=== PATIENT | female | born 1995 | race Caucasian/White ===

== ENCOUNTER → 2021-07-04 03:57 | Outpatient (CLI) | payer OTHER, SELFPAY ==
[2021-07-04 20:05] LABS: SARS-CoV-2 RNA PCR Negative
== END ==
PROVIDERS: PCP Family Medicine; Visit Provider Family Medicine
DX: Z20.822 Contact with and (suspected) exposure to COVID-19 (principal)
CPT/HCPCS: C9803; U0003; U0005

== ENCOUNTER → 2021-08-30 07:35 | Outpatient (CLI) | payer MEDICAID, SELFPAY ==
[2021-08-30 19:36] LABS: SARS-CoV-2 RNA PCR Negative
== END ==
PROVIDERS: PCP Family Medicine; Visit Provider Physician Assistant
DX: R68.89 Other general symptoms and signs (principal); Z20.822 Contact with and (suspected) exposure to COVID-19
CPT/HCPCS: C9803; U0003; U0005

== ENCOUNTER 2024-06-16 10:54 | Emergency (ER) | payer BC, SELFPAY ==
[2024-06-16 10:56] VITALS: BP 144/98; PULSE 73; RESP 15; TEMP 36.4; O2SAT 100
[2024-06-16 11:09] VITALS: BP 139/91; PULSE 63; RESP 17; TEMP 36.3; O2SAT 100
[2024-06-16 11:29] LABS: BEDSIDEPREGUCG Negative (Negative)
--- NOTE | 2024-06-16 12:19 | ED.GENADULT ---
HPI - General Adult General Chief complaint: Headache Stated complaint: migraine Time Seen by Provider: 06/16/24 11:27 History of Present Illness HPI narrative: 28-year-old female presents to the emergency department for evaluation for worsening headache. Patient does have a history of migraines and did stop taking her amitriptyline back in November. Patient states since then she has not had frequent migraines but states over the last 2 weeks she has had recurrent migraines at nighttime. Patient did present to the [facility] your urgent care today and was referred to the emergency department. Related Data Allergies Allergy/AdvReac Type Severity Reaction Status Date / Time No Known Drug Allergies Allergy Unknown Verified 06/16/24 12:28 Review of Systems Review of Systems: All systems reviewed & are unremarkable except as noted in HPI and below Exam Narrative: APPEARANCE: Well appearing, no pain, no distress, well-nourished. HEAD: normocephalic, atraumatic. EYES: PERRLA/EOMI, conjunctivae clear. NOSE: Normal no drainage NECK: Supple. No adenopathy, no masses. RESPIRATORY: Airway patent, respirations nonlabored. Clear to auscultation bilaterally, no rales, rhonchi, wheezing. CARDIOVASCULAR: Regular rate and rhythm without murmurs rubs or gallops. ABDOMINAL: Soft, nontender, nondistended, normal bowel sounds MUSCULOSKELETAL: Moves all extremities. Strength/ROM intact, No edema, No calf tenderness. NEURO: Alert. Cranial nerves II through XII intact. Grossly intact SKIN: Warm, dry. Normal Color Course Vital Signs Vital signs: Vital Signs Temperature 97.5 F L 06/16/24 10:56 Pulse Rate 73 06/16/24 10:56 Respiratory Rate 15 06/16/24 10:56 Blood Pressure 144/98 H 06/16/24 10:56 Pulse Oximetry 100 06/16/24 10:56 Oxygen Delivery Room Air 06/16/24 10:56 Temperature 97.6 F 06/16/24 14:23 Pulse Rate 66 06/16/24 14:23 Respiratory Rate 14 06/16/24 14:23 Blood Pressure 129/96 H 06/16/24 14:23 Pulse Oximetry 100 06/16/24 14:23 Oxygen Delivery Room Air 06/16/24 10:56 Medical Decision Making [facility] Narrative Medical decision making narrative: 28-year-old female presenting to the emergency department for evaluation for her migraine pain. Patient was treated with IV Toradol, IV Benadryl, IV Compazine and IV fluids. Patient had a normal neuro exam, low concern for intracranial abnormality knee. Patient did feel significantly improved on re-evaluation. Patient states her headache was completely resolved. Patient was encouraged to have close follow-up with her primary care physician and to seek referral to to a headache clinic. All questions concerns were addressed. Differential Diagnosis Differential Diagnosis: Headache, migraine, sinusitis Vital Signs Vital Signs: Vital Signs Temperature 97.5 F L 06/16/24 10:56 Pulse Rate 73 06/16/24 10:56 Respiratory Rate 15 06/16/24 10:56 Blood Pressure 144/98 H 06/16/24 10:56 Pulse Oximetry 100 06/16/24 10:56 Oxygen Delivery Room Air 06/16/24 10:56 Temperature 97.6 F 06/16/24 14:23 Pulse Rate 66 06/16/24 14:23 Respiratory Rate 14 06/16/24 14:23 Blood Pressure 129/96 H 06/16/24 14:23 Pulse Oximetry 100 06/16/24 14:23 Oxygen Delivery Room Air 06/16/24 10:56 Lab Data 06/16/24 12:26 06/16/24 12:25 Labs: Lab Results 06/16/24 06/16/24 06/16/24 Range/Units 11:26 12:25 12:26 WBC 9.5 (4.5-10.0) K/mm3 RBC 5.24 (4.2-5.4) M/mm3 Hgb 15.0 (12.0-15.0) g/dL Hct 45.4 (37.0-47.0) % MCV 86.6 (80-100) fl MCH 28.6 (26-34) pg MCHC 33.0 (32-36) g/dl RDW 13.2 (11.5-14.5) % Plt Count 419 H (150-375) k/mm3 MPV 9.4 (7.4-10.4) fl Immature Gran % (Auto) 0.2 (0-0.5) % Neut % (Auto) 67.0 (45.5-73.1) % Lymph % (Auto) 27.0 (18.3-44.2) % [place] % (Auto) 4.8 (2.6-8.5) % Eos % (Auto) 0.4 (0-4.4) % Baso % (Auto) 0.6 (0.2-1.2) % Lymph # (Auto) 2.57 (0.9-3.2) K/mm3 [place] # (Auto) 0.5 (0.1-0.6) K/mm3 Eos # (Auto) 0.0 (0-0.3) K/mm3 Baso # (Auto) 0.1 (0.0-0.1) K/mm3 Abs Immat Gran (auto) 0.02 (0.00-0.031) K/mm3 Absolute Neuts (auto) 6.4 (1.3-6.7) K/mm3 Absolute Nucleated RBC 0.000 (0.0-0.012) K/mm3 Nucleated RBC % 0.0 (0.0-0.2) % Sodium 140 (137-145) mmol/L Potassium 3.9 (3.4-5.0) mmol/L Chloride 104 (98-107) mmol/L Carbon Dioxide 25 (22-30) mmol/L Anion Gap 11 (4-12) mmol/L BUN 12 (7-17) mg/dL Creatinine 0.80 (0.7-1.0) mg/dL Estim Creat Clear Calc 89 ml/min Estimated GFR > 60 (59 - ) Glucose 122 H (65-110) mg/dL Calcium 9.2 (8.4-10.2) mg/dL Total Bilirubin 0.6 (0.2-1.3) mg/dL AST 28 (14-36) U/L ALT 13 (6-35) U/L Alkaline Phosphatase 48 (38-126) U/L Total Protein 9.0 H (6.3-8.2) g/dL Albumin 4.8 (3.5-5.1) g/dL Urine Color Yellow (Yellow) Urine Appearance Clear (Clear) Urine pH 5.5 (5.0-9.0) Ur Specific [place] 1.014 (1.001-1.035) Urine Protein Negative (Negative) mg/dL Urine Glucose (UA) Negative (Negative) mg/dL Urine Ketones Trace H (Negative) mg/dL Ur Blood (Man) 1+ H (Negative) Urine Nitrate Negative (Negative) Urine Bilirubin Negative (Negative) Urine Urobilinogen 0.2 (<2.0) mg/dL Leukocyte Esterase Rfl Negative (Negative) LUIS/UL Urine RBC 0-2 (0-2) /hpf Urine WBC 6-10 H (0-3) /hpf Ur Squamous Epith Cells Occasional (Few) /hpf Urine Bacteria 1+ H /hpf Urine Casts 0-2 POC Urine HCG, Qual Negative (Negative) Discharge Plan Discharge Clinical Impression: Headache Patient Disposition: Home, Self-Care Condition: Stable Instructions: Antibiotic Form, Migraine Headache (ED) Additional Instructions: Have close follow-up your primary care physician. Your primary care physician may want you to follow up with a headache clinic. Your primary care physician may wish to start you on other medications to either prevent or terry a migraine. If you have any worsening symptoms then please call or return to the emergency department. Follow-up/Referrals: Bryon Jaimes MD [Primary Care Provider] -
[2024-06-16] MEDS: PROCHLORPERAZINE EDISYLATE 10 MG/2 ML VIAL IV PUSH (12:24)
[2024-06-16] MEDS: diphenhydrAMINE HCl INJ 50 MG/ML VIAL 25 MG IV PUSH (12:24)
[2024-06-16] MEDS: SODIUM CHLORIDE 0.9% IV 1,000 ML 999 ML IV CONT (12:24)
[2024-06-16 12:37] LABS: Basophils Absolute Auto 0.1 K/mm3 (0.0-0.1); Basophils Percent Auto 0.6 % (0.2-1.2); Eosinophils Percent Auto 0.4 % (0-4.4); Hematocrit 45.4 % (37.0-47.0); Immature Granulocyte Absolute 0.02 K/mm3 (0.00-0.031); Immature Granulocyte Percent A 0.2 % (0-0.5); Lymphocytes Absolute Auto 2.57 K/mm3 (0.9-3.2); Mean Corpuscular Hemoglobin 28.6 pg (26-34); Mean Corpuscular Volume 86.6 fl (80-100); Mean Platelet Volume 9.4 fl (7.4-10.4); Monocytes Absolute Auto 0.5 K/mm3 (0.1-0.6); Monocytes Percent Auto 4.8 % (2.6-8.5); Neutrophils Absolute Auto 6.4 K/mm3 (1.3-6.7); Platelet Count Result 419 k/mm3 (150-375); Red Blood Count 5.24 M/mm3 (4.2-5.4); Red Cell Distribution Width 13.2 % (11.5-14.5); White Blood Count 9.5 K/mm3 (4.5-10.0)
[2024-06-16 12:42] LABS: Add Urine Microscopic? YES; Appearance Urine Clear (Clear); Bacteria Urine 1+ /hpf; Bilirubin Urine Negative (Negative); Blood Urine 1+ (Negative); Color Urine Yellow (Yellow); Glucose Urine UA Negative (Negative); Ketones Urine Trace mg/dL (Negative); Leukocyte Esterase Ur Negative LEU/UL (Negative); Nitrate Urine Negative (Negative); Non Pathogenic Casts 0-2; Protein Urine Negative (Negative); RBC Urine 0-2 /hpf (0-2); Specific Grav Ur 1.014 (1.001-1.035); Squamous Epithelial Cell Urine Occasional /hpf (Few); Urobilinogen Urine 0.2 mg/dL (<2.0); pH Urine 5.5 (5.0-9.0)
[2024-06-16 12:48] LABS: Alanine Aminotransferase 13 U/L (6-35); Albumin Level 4.8 g/dL (3.5-5.1); Alkaline Phosphatase 48 U/L (38-126); Anion Gap 11 mmol/L (4-12); Aspartate Amino Transferase 28 U/L (14-36); Bilirubin,Total 0.6 mg/dL (0.2-1.3); Blood Urea Nitrogen 12 mg/dL (7-17); Calcium 9.2 mg/dL (8.4-10.2); Carbon Dioxide 25 mmol/L (22-30); Chloride 104 mmol/L (98-107); Estimated CRCL calculation 89 ml/min; Estimated Glomerular Filt Rate > 60; Glucose 122 mg/dL (65-110); Potassium 3.9 mmol/L (3.4-5.0); Sodium 140 mmol/L (137-145)
[2024-06-16 14:23] VITALS: BP 129/96; PULSE 66; RESP 14; TEMP 36.4; O2SAT 100
== END 2024-06-16 14:24 | disposition home or self-care (01) ==
PROVIDERS: Physician Assistant; Emergency Provider Emergency Medicine; PCP Family Medicine
DX: R51.9 Headache, unspecified (principal); R82.998 Other abnormal findings in urine
CPT/HCPCS: 36415; 80053; 81001; 81025; 85025; 87086; 96361; 96374; 96375; 99284; J0780; J1200; J7030